=== PATIENT | female | born 1935 | race Caucasian/White ===

== ENCOUNTER 2018-04-14 16:02 | Emergency (ER) | payer OTHER, MEDICAID, MEDICARE ==
[~2018-04-14] VITALS: Ht 160 cm; Wt 55.0 kg
[~2018-04-14 16:02] MED LIST: ACET-3161 PO; LEVO75TA7 PO; SIMV20TA6 PO; SOLI5TAB PO
[2018-04-14] MEDS ORDERED: NAPROXEN 375MG TABLET PO ONE (17:30)
[2018-04-14] MEDS ORDERED: MORPHINE SULFATE 4 MG/ML CPJ (NOT FOR IM USE) IV STA (18:32)
[2018-04-14] MEDS ORDERED: ONDANSETRON HCL 4MG/2ML INJ IV STA (18:32)
[2018-04-14 19:14] LABS: BASOPHILS % 0.4 % (0.0-2.0); EOSINOPHILS % 0.8 % (0.0-5.0); HEMATOCRIT. 37.2 % (36.0-48.0); HEMOGLOBIN. 12.1 g/dL (12.0-16.0); LYMPHOCYTES % 11.2 % (20.0-50.0); MEAN CORPUSCULAR HEMOGLOBIN 30.7 pg (28.0-32.0); MEAN CORPUSCULAR VOLUME 94.5 fL (81.0-99.0); MEAN PLATELET VOLUME 7.9 fl (7.4-10.4); MONOCYTES % 3.2 % (2.0-8.0); NEUTROPHILS % 84.4 % (40.0-76.0); PLATELET 212 x1000/uL (130-400); RED BLOOD CELL COUNT 3.94 mill/uL (4.2-5.4); RED CELL DISTRIBUTION WIDTH 13.9 % (11.6-14.6)
[2018-04-14 19:19] LABS: CHLORIDE 104 mEq/L (98-107)
[2018-04-14 19:21] LABS: PROTHROMBIN TIME 10.3 sec (9.1-11.1)
[2018-04-14 22:56] VITALS: BP 101/50
== END 2018-04-15 00:40 | disposition short-term general hospital (02) ==
LOC: ER 16:02 → CANBEDREQ 04-15 07:17
DX: S32.401A Unspecified fracture of right acetabulum, initial encounter for closed fracture (principal); S32.512A Fracture of superior rim of left pubis, initial encounter for closed fracture; S32.591A Other specified fracture of right pubis, initial encounter for closed fracture; M85.811 Other specified disorders of bone density and structure, right shoulder; E78.00 Pure hypercholesterolemia, unspecified; E03.9 Hypothyroidism, unspecified; M19.011 Primary osteoarthritis, right shoulder; W01.0XXA Fall on same level from slipping, tripping and stumbling without subsequent striking against object, initial encounter; Y93.9 Activity, unspecified; Y92.89 Other specified places as the place of occurrence of the external cause; Z88.0 Allergy status to penicillin
CPT/HCPCS: 36415; 72192; 73030; 73502; 80053; 85025; 85610; 93005; 96374; 96375; 96376; 99285; J2270; J2405

== ENCOUNTER 2019-01-25 18:00 | Inpatient (IN) | payer MEDICARE, MEDICAID ==
[~2019-01-25] VITALS: Ht 152.4 cm; Wt 65.4 kg
[2019-01-25 18:47] VITALS: BP 117/52
[2019-01-25 20:00] VITALS: BP 107/49
[2019-01-25] MEDS ORDERED: BISACODYL 10MG SUPP PR PRN (20:30)
[2019-01-25] MEDS ORDERED: DIPHENHYDRAMINE 50MG/ML VIAL IM PRN (20:30)
[2019-01-25] MEDS ORDERED: ONDANSETRON HCL 4MG/2ML INJ IV PRN (20:30)
[2019-01-25] MEDS ORDERED: MEROPENEM 1,000 MG in SODIUM CHLORIDE 0.9% 100 ML IV SCH ×4 (21:00)
[2019-01-25] MEDS: METRONIDAZOLE 500MG TABLET PO SCH (21:25)
[2019-01-25] MEDS ORDERED: DIPHENHYDRAMINE 25MG CAPSULE PO PRN (23:00)
[2019-01-25] MEDS ORDERED: ONDANSETRON HCL 4MG TABLET PO PRN (23:00)
[2019-01-26] MEDS: MEROPENEM 1,000 MG in SODIUM CHLORIDE 0.9% 100 ML IV SCH ×2 (01:42→14:29)
[2019-01-26] MEDS: METRONIDAZOLE 500MG TABLET PO SCH ×3 (05:55→21:58)
[2019-01-26 06:08] LABS: BASOPHILS % 0.9 % (0.0-2.0); EOSINOPHILS % 1.8 % (0.0-5.0); HEMATOCRIT. 31.7 % (36.0-48.0); HEMOGLOBIN. 10.6 g/dL (12.0-16.0); LYMPHOCYTES % 24.3 % (20.0-50.0); MEAN CORPUSCULAR HEMOGLOBIN 31.6 pg (28.0-32.0); MEAN CORPUSCULAR VOLUME 94.3 fL (81.0-99.0); MEAN PLATELET VOLUME 8.1 fl (7.4-10.4); MONOCYTES % 8.6 % (2.0-8.0); NEUTROPHILS % 64.4 % (40.0-76.0); PLATELET 505 x1000/uL (130-400); RED BLOOD CELL COUNT 3.37 mill/uL (4.2-5.4)
[2019-01-26 06:20] LABS: CHLORIDE 104 mEq/L (98-107)
[2019-01-26 08:00] VITALS: BP 116/65
[2019-01-26] MEDS: FAMOTIDINE 20MG TABLET PO SCH (08:34)
[2019-01-26] MEDS: MULTIVITAMINS,THER W-MINERALS TABLET PO SCH (08:34)
[2019-01-26] MEDS ORDERED: FAMOTIDINE 20MG/2ML VIAL IV SCH (09:00)
[2019-01-26] MEDS: LEVOFLOXACIN 250MG TABLET PO SCH (11:20)
[2019-01-26] MEDS: ACETAMINOPHEN 325MG TABLET PO PRN (14:35)
[2019-01-26 19:47] LABS: CLARITY URINE CLEAR (CLEAR); COLOR URINE YELLOW (YELLOW); KETONES URINE NEGATIVE (NEGATIVE); LEUKOCYTE ESTERASE URINE NEGATIVE (NEGATIVE); NITRITE URINE NEGATIVE (NEGATIVE); OCCULT BLOOD URINE TRACE (NEGATIVE); PH URINE 5.5 (4.5-8.0); PROTEIN URINE TRACE (NEGATIVE); SPECIFIC GRAVITY URINE 1.014 (1.005-1.030); UROBILINOGEN URINE 0.2 E.U./dL (0.2-1.0)
[2019-01-26 20:00] VITALS: BP 109/45
[2019-01-27] MEDS: METRONIDAZOLE 500MG TABLET PO SCH ×3 (06:34→21:20)
[2019-01-27 07:03] LABS: BASOPHILS % 0.6 % (0.0-2.0); EOSINOPHILS % 1.5 % (0.0-5.0); HEMATOCRIT. 31.6 % (36.0-48.0); HEMOGLOBIN. 10.7 g/dL (12.0-16.0); LYMPHOCYTES % 23.8 % (20.0-50.0); MEAN CORPUSCULAR HEMOGLOBIN 31.9 pg (28.0-32.0); MEAN CORPUSCULAR VOLUME 94.5 fL (81.0-99.0); MEAN PLATELET VOLUME 8.1 fl (7.4-10.4); MONOCYTES % 8.2 % (2.0-8.0); NEUTROPHILS % 65.9 % (40.0-76.0); PLATELET 573 x1000/uL (130-400); RED BLOOD CELL COUNT 3.35 mill/uL (4.2-5.4); RED CELL DISTRIBUTION WIDTH 14.5 % (11.6-14.6)
[2019-01-27 07:10] LABS: CHLORIDE 103 mEq/L (98-107)
[2019-01-27 07:19] LABS: PHOSPHORUS 2.2 mg/dL (2.5-4.9)
[2019-01-27 07:21] LABS: LDL CHOLESTEROL 89 mg/dL (5-100)
[2019-01-27 07:24] LABS: HDL CHOLESTEROL 37 mg/dL (40-59); TOTAL IRON BINDING CAPACITY 257 ug/dL (250-450)
[2019-01-27 07:38] LABS: FOLIC ACID (FOLATE) SERUM > 20.00 ng/mL (>5.38); VITAMIN B12 SERUM > 2000.0 pg/mL (211-911)
[2019-01-27 08:00] VITALS: BP 118/51
[2019-01-27] MEDS ORDERED: POTASSIUM-SODIUM PHOSPHATE POWDER PACKET PO NR (08:00)
[2019-01-27] MEDS: LACTULOSE 20G/30ML UDC PO SCH ×2 (09:24→13:12)
[2019-01-27] MEDS: MULTIVITAMINS,THER W-MINERALS TABLET PO SCH (09:24)
[2019-01-27] MEDS: DOCUSATE SODIUM 100MG CAPSULE PO SCH ×2 (09:24→18:22)
[2019-01-27] MEDS: FAMOTIDINE 20MG TABLET PO SCH (09:25)
[2019-01-27] MEDS: LEVOFLOXACIN 250MG TABLET PO SCH (11:09)
[2019-01-27 12:19] LABS: FERRITIN 234 ng/mL (10-291)
[2019-01-27] MEDS: LEVOTHYROXINE SODIUM 75MCG TABLET PO SCH (18:22)
[2019-01-27] MEDS: ENOXAPARIN 40MG/0.4ML SYR SUBCUT SCH (18:23)
[2019-01-27 20:00] VITALS: BP 117/53
[2019-01-28] MEDS: METRONIDAZOLE 500MG TABLET PO SCH ×3 (06:06→21:23)
[2019-01-28] MEDS: LEVOTHYROXINE SODIUM 75MCG TABLET PO SCH (06:06)
[2019-01-28 08:00] VITALS: BP 126/55
[2019-01-28] MEDS: DOCUSATE SODIUM 100MG CAPSULE PO SCH ×2 (08:33→18:03)
[2019-01-28] MEDS: MULTIVITAMINS,THER W-MINERALS TABLET PO SCH (08:33)
[2019-01-28] MEDS: ENOXAPARIN 40MG/0.4ML SYR SUBCUT SCH (08:34)
[2019-01-28] MEDS: FAMOTIDINE 20MG TABLET PO SCH (08:34)
[2019-01-28 10:21] LABS: PHOSPHORUS 2.5 mg/dL (2.5-4.9)
[2019-01-28 10:24] LABS: T4 FREE 1.05 ng/dL (0.76-1.46)
[2019-01-28] MEDS: ACETAMINOPHEN 325MG TABLET PO PRN ×2 (11:49→21:23)
[2019-01-28] MEDS: LEVOFLOXACIN 250MG TABLET PO SCH (11:49)
[2019-01-28 20:00] VITALS: BP_SYST 108; BP_SYST 110; BP_DIAS 46; BP_DIAS 50
[2019-01-29] MEDS: METRONIDAZOLE 500MG TABLET PO SCH ×3 (05:35→21:16)
[2019-01-29] MEDS: LEVOTHYROXINE SODIUM 75MCG TABLET PO SCH (06:09)
[2019-01-29 08:00] VITALS: BP 113/46
[2019-01-29] MEDS: ENOXAPARIN 40MG/0.4ML SYR SUBCUT SCH (08:40)
[2019-01-29] MEDS: MULTIVITAMINS,THER W-MINERALS TABLET PO SCH (08:40)
[2019-01-29] MEDS: FAMOTIDINE 20MG TABLET PO SCH (08:40)
[2019-01-29] MEDS: DOCUSATE SODIUM 100MG CAPSULE PO SCH ×2 (08:40→16:39)
[2019-01-29] MEDS: LEVOFLOXACIN 250MG TABLET PO SCH (10:24)
[2019-01-29 20:00] VITALS: BP 11/50
[2019-01-30] MEDS: METRONIDAZOLE 500MG TABLET PO SCH ×3 (05:46→21:24)
[2019-01-30] MEDS: LEVOTHYROXINE SODIUM 75MCG TABLET PO SCH (06:00)
[2019-01-30 08:00] VITALS: BP 123/57
[2019-01-30] MEDS: DOCUSATE SODIUM 100MG CAPSULE PO SCH ×2 (08:41→17:00)
[2019-01-30] MEDS: ENOXAPARIN 40MG/0.4ML SYR SUBCUT SCH (08:41)
[2019-01-30] MEDS: FAMOTIDINE 20MG TABLET PO SCH (08:41)
[2019-01-30] MEDS: MULTIVITAMINS,THER W-MINERALS TABLET PO SCH (08:41)
[2019-01-30] MEDS: LEVOFLOXACIN 250MG TABLET PO SCH (10:28)
[2019-01-30 20:00] VITALS: BP 117/52
[2019-01-30] MEDS: ACETAMINOPHEN 325MG TABLET PO PRN (22:24)
[2019-01-31] MEDS: METRONIDAZOLE 500MG TABLET PO SCH ×3 (06:24→21:09)
[2019-01-31] MEDS: LEVOTHYROXINE SODIUM 75MCG TABLET PO SCH (06:24)
[2019-01-31 08:20] VITALS: BP 120/53
[2019-01-31] MEDS: DOCUSATE SODIUM 100MG CAPSULE PO SCH ×2 (08:55→16:38)
[2019-01-31] MEDS: MULTIVITAMINS,THER W-MINERALS TABLET PO SCH (08:55)
[2019-01-31] MEDS: FAMOTIDINE 20MG TABLET PO SCH (08:55)
[2019-01-31] MEDS: ENOXAPARIN 40MG/0.4ML SYR SUBCUT SCH (08:56)
[2019-01-31] MEDS: LEVOFLOXACIN 250MG TABLET PO SCH (11:13)
[2019-01-31 20:00] VITALS: BP 115/58
[2019-02-01 06:09] LABS: 25-HYDROXY VITAMIN D3 34 ng/mL (.)
[2019-02-01] MEDS: LEVOTHYROXINE SODIUM 75MCG TABLET PO SCH (06:12)
[2019-02-01] MEDS: METRONIDAZOLE 500MG TABLET PO SCH ×3 (06:12→21:38)
[2019-02-01 07:49] LABS: EOSINOPHILS % 0.7 % (0.0-5.0); HEMATOCRIT. 30.8 % (36.0-48.0); HEMOGLOBIN. 10.2 g/dL (12.0-16.0); LYMPHOCYTES % 23.8 % (20.0-50.0); MEAN CORPUSCULAR HEMOGLOBIN 31.5 pg (28.0-32.0); MEAN CORPUSCULAR VOLUME 94.9 fL (81.0-99.0); MEAN PLATELET VOLUME 7.6 fl (7.4-10.4); MONOCYTES % 9.2 % (2.0-8.0); NEUTROPHILS % 65.3 % (40.0-76.0); PLATELET 476 x1000/uL (130-400); RED BLOOD CELL COUNT 3.24 mill/uL (4.2-5.4); RED CELL DISTRIBUTION WIDTH 14.5 % (11.6-14.6)
[2019-02-01 08:07] VITALS: BP 100/44
[2019-02-01 08:23] LABS: CHLORIDE 105 mEq/L (98-107)
[2019-02-01 08:28] LABS: PHOSPHORUS 2.4 mg/dL (2.5-4.9)
[2019-02-01] MEDS: FAMOTIDINE 20MG TABLET PO SCH (08:36)
[2019-02-01] MEDS: ENOXAPARIN 40MG/0.4ML SYR SUBCUT SCH (08:36)
[2019-02-01] MEDS: MULTIVITAMINS,THER W-MINERALS TABLET PO SCH (08:36)
[2019-02-01] MEDS: DOCUSATE SODIUM 100MG CAPSULE PO SCH ×2 (08:36→16:33)
[2019-02-01] MEDS: LEVOFLOXACIN 250MG TABLET PO SCH (10:28)
[2019-02-01] MEDS ORDERED: POTASSIUM CHLORIDE 20MEQ TABLET SR PO SCH (14:00)
[2019-02-01 20:00] VITALS: BP 109/39
[2019-02-01] MEDS ORDERED: POTASSIUM-SODIUM PHOSPHATE POWDER PACKET PO NR (21:00)
[2019-02-02] MEDS: LEVOTHYROXINE SODIUM 75MCG TABLET PO SCH (06:18)
[2019-02-02 07:51] LABS: CHLORIDE 107 mEq/L (98-107)
[2019-02-02 07:57] LABS: PHOSPHORUS 2.7 mg/dL (2.5-4.9)
[2019-02-02 08:00] VITALS: BP 111/51
[2019-02-02] MEDS: FAMOTIDINE 20MG TABLET PO SCH (08:08)
[2019-02-02] MEDS: ENOXAPARIN 40MG/0.4ML SYR SUBCUT SCH (08:08)
[2019-02-02] MEDS: DOCUSATE SODIUM 100MG CAPSULE PO SCH ×2 (08:08→17:50)
[2019-02-02] MEDS: MULTIVITAMINS,THER W-MINERALS TABLET PO SCH (08:08)
[2019-02-02] MEDS: LEVOFLOXACIN 250MG TABLET PO SCH (11:18)
[2019-02-02 20:00] VITALS: BP 110/56
[2019-02-03] MEDS: LEVOTHYROXINE SODIUM 75MCG TABLET PO SCH (06:08)
[2019-02-03 08:03] VITALS: BP 111/44
[2019-02-03] MEDS: ENOXAPARIN 40MG/0.4ML SYR SUBCUT SCH (08:12)
[2019-02-03] MEDS: FAMOTIDINE 20MG TABLET PO SCH (08:13)
[2019-02-03] MEDS: MULTIVITAMINS,THER W-MINERALS TABLET PO SCH (08:13)
[2019-02-03] MEDS: DOCUSATE SODIUM 100MG CAPSULE PO SCH ×2 (08:13→17:14)
[2019-02-03 20:00] VITALS: BP 104/34
[2019-02-03] MEDS: ACETAMINOPHEN 325MG TABLET PO PRN (21:05)
[2019-02-04] MEDS: LEVOTHYROXINE SODIUM 75MCG TABLET PO SCH (06:06)
[2019-02-04 07:30] LABS: BASOPHILS % 1.2 % (0.0-2.0); EOSINOPHILS % 2.1 % (0.0-5.0); HEMATOCRIT. 31.2 % (36.0-48.0); HEMOGLOBIN. 10.4 g/dL (12.0-16.0); LYMPHOCYTES % 25.9 % (20.0-50.0); MEAN CORPUSCULAR HEMOGLOBIN 31.6 pg (28.0-32.0); MEAN CORPUSCULAR VOLUME 95.1 fL (81.0-99.0); MEAN PLATELET VOLUME 7.6 fl (7.4-10.4); MONOCYTES % 7.9 % (2.0-8.0); NEUTROPHILS % 62.9 % (40.0-76.0); PLATELET 378 x1000/uL (130-400); RED BLOOD CELL COUNT 3.28 mill/uL (4.2-5.4); RED CELL DISTRIBUTION WIDTH 14.8 % (11.6-14.6)
[2019-02-04 08:00] VITALS: BP 114/44
[2019-02-04 08:01] LABS: CHLORIDE 106 mEq/L (98-107)
[2019-02-04 08:06] LABS: PHOSPHORUS 3.3 mg/dL (2.5-4.9)
[2019-02-04] MEDS: ENOXAPARIN 40MG/0.4ML SYR SUBCUT SCH (08:46)
[2019-02-04] MEDS: MULTIVITAMINS,THER W-MINERALS TABLET PO SCH (08:47)
[2019-02-04] MEDS: DOCUSATE SODIUM 100MG CAPSULE PO SCH ×2 (08:47→16:33)
[2019-02-04] MEDS: FAMOTIDINE 20MG TABLET PO SCH (08:47)
[2019-02-04 20:00] VITALS: BP 111/46
[2019-02-05] MEDS: LEVOTHYROXINE SODIUM 75MCG TABLET PO SCH (06:07)
[2019-02-05 07:30] VITALS: BP 113/47
[2019-02-05] MEDS: MULTIVITAMINS,THER W-MINERALS TABLET PO SCH (08:21)
[2019-02-05] MEDS: ENOXAPARIN 40MG/0.4ML SYR SUBCUT SCH (08:21)
[2019-02-05] MEDS: DOCUSATE SODIUM 100MG CAPSULE PO SCH ×2 (08:22→16:22)
[2019-02-05] MEDS: FAMOTIDINE 20MG TABLET PO SCH (08:22)
[2019-02-05 20:00] VITALS: BP 113/52
[2019-02-06] MEDS: LEVOTHYROXINE SODIUM 75MCG TABLET PO SCH (06:19)
[2019-02-06 07:12] LABS: BASOPHILS % 0.7 % (0.0-2.0); EOSINOPHILS % 2.7 % (0.0-5.0); HEMATOCRIT. 33.3 % (36.0-48.0); HEMOGLOBIN. 10.8 g/dL (12.0-16.0); LYMPHOCYTES % 30.7 % (20.0-50.0); MEAN CORPUSCULAR HEMOGLOBIN 30.8 pg (28.0-32.0); MEAN PLATELET VOLUME 7.8 fl (7.4-10.4); MONOCYTES % 9.9 % (2.0-8.0); PLATELET 327 x1000/uL (130-400); RED BLOOD CELL COUNT 3.51 mill/uL (4.2-5.4)
[2019-02-06 08:20] LABS: CHLORIDE 107 mEq/L (98-107)
[2019-02-06 08:22] VITALS: BP 105/59
[2019-02-06 08:30] LABS: PHOSPHORUS 3.6 mg/dL (2.5-4.9)
[2019-02-06] MEDS: DOCUSATE SODIUM 100MG CAPSULE PO SCH ×2 (08:33→17:00)
[2019-02-06] MEDS: ENOXAPARIN 40MG/0.4ML SYR SUBCUT SCH (08:34)
[2019-02-06] MEDS: MULTIVITAMINS,THER W-MINERALS TABLET PO SCH (08:34)
[2019-02-06] MEDS: FAMOTIDINE 20MG TABLET PO SCH (08:34)
[2019-02-06 20:00] VITALS: BP 125/47
[2019-02-07] MEDS: LEVOTHYROXINE SODIUM 75MCG TABLET PO SCH (06:31)
[2019-02-07 08:20] VITALS: BP 107/61
[2019-02-07] MEDS: MULTIVITAMINS,THER W-MINERALS TABLET PO SCH (08:39)
[2019-02-07] MEDS: DOCUSATE SODIUM 100MG CAPSULE PO SCH ×2 (08:39→16:17)
[2019-02-07] MEDS: FAMOTIDINE 20MG TABLET PO SCH (08:39)
[2019-02-07] MEDS: ENOXAPARIN 40MG/0.4ML SYR SUBCUT SCH (08:40)
[2019-02-07 20:00] VITALS: BP 128/65
[2019-02-08] MEDS: LEVOTHYROXINE SODIUM 75MCG TABLET PO SCH (06:07)
[2019-02-08 08:00] VITALS: BP 107/67
[2019-02-08] MEDS: DOCUSATE SODIUM 100MG CAPSULE PO SCH (08:02)
[2019-02-08] MEDS: FAMOTIDINE 20MG TABLET PO SCH (08:02)
[2019-02-08] MEDS: MULTIVITAMINS,THER W-MINERALS TABLET PO SCH (08:02)
[2019-02-08] MEDS: ENOXAPARIN 40MG/0.4ML SYR SUBCUT SCH (08:02)
[2019-02-08 08:38] VITALS: BP 107/67
== END 2019-02-08 13:15 | disposition home health service (06) | DRG 73 ==
PROVIDERS: ADMIT Physical Medicine & Rehabilitation Spinal Cord Injury Medicine; ATTEND Internal Medicine
DX: G62.81 Critical illness polyneuropathy (principal); A41.51 Sepsis due to Escherichia coli [E. coli]; K85.90 Acute pancreatitis without necrosis or infection, unspecified; E46 Unspecified protein-calorie malnutrition; K80.63 Calculus of gallbladder and bile duct with acute cholecystitis with obstruction; N39.0 Urinary tract infection, site not specified; E87.2 Acidosis; Z16.12 Extended spectrum beta lactamase (ESBL) resistance; D64.9 Anemia, unspecified; E03.9 Hypothyroidism, unspecified; R53.81 Other malaise; M19.90 Unspecified osteoarthritis, unspecified site; R13.10 Dysphagia, unspecified; R26.9 Unspecified abnormalities of gait and mobility; D69.6 Thrombocytopenia, unspecified; M75.01 Adhesive capsulitis of right shoulder; M79.609 Pain in unspecified limb; R73.9 Hyperglycemia, unspecified; E78.1 Pure hyperglyceridemia; M85.80 Other specified disorders of bone density and structure, unspecified site; E83.51 Hypocalcemia; M25.511 Pain in right shoulder; G89.29 Other chronic pain; E87.6 Hypokalemia; E83.39 Other disorders of phosphorus metabolism; E83.41 Hypermagnesemia; I70.0 Atherosclerosis of aorta; F06.31 Mood disorder due to known physiological condition with depressive features; K82.8 Other specified diseases of gallbladder; Z88.0 Allergy status to penicillin; Z79.899 Other long term (current) drug therapy; Z68.28 Body mass index [BMI] 28.0-28.9, adult
CPT/HCPCS: 36415; 80048; 80061; 81003; 82306; 82533; 82607; 82728; 82746; 83540; 83550; 83735; 84100; 84134; 84439; 84443; 84481; 92523; 92610; 93970; 97110; 97116; 97162; 97166; 97530; 97535; A6261; G0515; J1650; J2185; J3490; J7040; J7050; Q0162